=== PATIENT | female | born 2000 | race Two or more races ===

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

== ENCOUNTER 2020-12-03 19:44 | Emergency (ER) | payer MEDICAID ==
[~2020-12-03] VITALS: Ht 162.6 cm; Wt 49.9 kg
[2020-12-04 00:24] VITALS: BP 129/82
== END 2020-12-04 00:47 | disposition home or self-care (01) ==
LOC: ER 19:46
DX: R59.1 Generalized enlarged lymph nodes (principal); R09.81 Nasal congestion
CPT/HCPCS: 76536